=== PATIENT | male | born 1990 | race Caucasian/White ===

== ENCOUNTER → 2020-03-23 15:03 | Outpatient (CLI) | payer BC, SELFPAY ==
--- NOTE | ~2020-03-23 | US_ITS ---
Please refer to right mammogram dated 03/23/2020 for details. Reviewed, dictated and finalized at location A.
--- NOTE | ~2020-03-23 | MM_ITS ---
EXAMINATION: MM diagnostic sivakumar RT w mary HISTORY: Palpable right breast abnormality TECHNIQUE: Additional 3-D tomosynthesis images of the right breast were performed and synthetic 2-D i mages were generated. Additional comparison left MLO view. CAD analysis was submitted and interpreted . High resolution right breast ultrasound was performed. COMPARISON: None BREAST PARENCHYMAL COMPOSITION: Breast composed of scattered areas of fibroglandular density. FINDINGS: MAMMOGRAPHIC FINDINGS: No suspicious masses, calcifications or architectural distortion in the right breast to suggest malig clarice. There is bilateral symmetric gynecomastia. ULTRASOUND: Right breast ultrasound: Normal heterogeneous echotexture. Irregular hypoechoic soft tissue in the subareolar location is comp atible with breast bud. This corresponds to the area of palpable concern. IMPRESSION: 1. No evidence for malignancy in the right breast. Bilateral symmetric gynecomastia. BI-RADS CATEGORY 2 - BENIGN FINDINGS Reviewed, dictated and finalized at location A. IMPRESSION: 1. No evidence for malignancy in the right breast. Bilateral symmetric gynecoma stia. BI-RADS CATEGORY 2 - BENIGN FINDINGS
== END ==
DX: N63.15 Unspecified lump in the right breast, overlapping quadrants (principal)
CPT/HCPCS: 76642; 77061; 77065; G0279